=== PATIENT | female | born 1995 | race Caucasian/White ===

== ENCOUNTER 2018-01-21 09:28 | Inpatient (IN) | payer OTHER ==
[2018-01-21] VITALS (18 sets, daily range): BP systolic 105–134; BP diastolic 55–83; PULSE 78–106; TEMP 97.6–98.3
[~2018-01-21] VITALS: Ht 154.9 cm; Wt 75.0 kg
[2018-01-21] MEDS ORDERED: NATURAL IRON65 MG (09:56)
[2018-01-21] MEDS ORDERED: PRENATAL MVI (09:56)
[2018-01-21] MEDS ORDERED: FIBER GUMMIES2.5 GM PO (09:58)
[2018-01-21] MEDS ORDERED: ZANTAC 7575 MG PO (09:58)
[2018-01-21 12:22] LABS: BASO % 0.3 % (0.0-2.0); EOS # 0.2 (0.0-0.7); GRAN # 12.2 (1.4-6.5); GRAN % 78.1 % (42.2-75.2); HEMOGLOBIN 12.4 g/dl (12.5-16.0); LYMPH # 2.1 (1.2-3.4); LYMPH % 13.5 % (20.0-51.0); MEAN CELL VOLUME 92 fl (80.0-100.0); MEAN CORPUSCULAR HEMOGLOBIN 32 pg (27.0-31.0); MEAN CORPUSCULAR HGB CONC 35 g/dl (33.0-37.0); MEAN PLATELET VOLUME 11.3 fl (7.4-10.4); MONO % 6.6 % (1.7-9.3); PLATELET COUNT 217 K/mm3 (130-400); RED BLOOD COUNT 3.88 M/mm3 (4.10-5.30); REDCELL DISTRIBUTION WIDTH-CV 13.1 % (11.5-14.5)
[2018-01-21 12:32] LABS: HEMATOCRIT 35.7 % (37.0-47.0)
[2018-01-22 01:00] VITALS: BP 110/57; PULSE 81; TEMP 98.7
[2018-01-22 05:00] VITALS: BP 104/62; PULSE 81; TEMP 98.2
[2018-01-22 07:36] VITALS: BP 121/65; PULSE 82; TEMP 97.5
[2018-01-22] MEDS ORDERED: IBU800 M1 PO (11:02)
[2018-01-22] MEDS ORDERED: PERCOCET 325 MG1 TA2 PO (11:02)
[2018-01-22 12:00] VITALS: BP 113/72; PULSE 84; TEMP 98.3
[2018-01-22 16:00] VITALS: BP 114/69; PULSE 83; TEMP 98.4
[2018-01-22 20:30] VITALS: BP 112/66; PULSE 86; TEMP 98.3
[2018-01-23 08:43] VITALS: BP 112/73; PULSE 86; TEMP 98.2
== END 2018-01-23 11:05 | disposition home or self-care (01) | DRG 775 ==
LOC: LDRO 09:28 → LDR 11:40 → OB 11:40
PROVIDERS: Student in an Organized Health Care Education/Training Program
PROC: 10E0XZZ Delivery of Products of Conception, External Approach (ICD-10-PCS; principal; 2018-01-21)
PROC: 0KQM0ZZ Repair Perineum Muscle, Open Approach (ICD-10-PCS; 2018-01-21)
DX: O70.1 Second degree perineal laceration during delivery (principal); Z37.0 Single live birth; Z3A.38 38 weeks gestation of pregnancy; O99.02 Anemia complicating childbirth
CPT/HCPCS: J2590; J2795; J7120

== ENCOUNTER → 2018-07-27 | Outpatient (CLI) | payer OTHER ==
[~2018-07-27] MED LIST: FIBER GUMMIES2.5 GM PO; IBU800 M1 PO; NATURAL IRON65 MG; PERCOCET 325 MG1 TA2 PO; PRENATAL MVI; ZANTAC 7575 MG PO
--- NOTE | 2018-07-27 14:13 | NUR ---
Pt, Mackenzie Victor, presents for walk-in clinic with 6 month old baby boy, Jonatan Victor, for a evaluation because Jonatan has only gained a few ounces between his last 2 doctor appointments. Jonatan was seen yesterday by Dr. Liriano for his 6 month appointment and weighed 14# 5oz. Pt was advised to supplement and follow up with for information. Jonatan was born on [birth year] and weighed 6#8oz per pt report. Today he weighs 14# 7oz. He was supplemented in the last 24 hours with 6oz EBM and/or formula. He ate some avacado yesterday as well. Pt reports Jonatan nurses every 1-2 hours throughout the daytime and once over noc. She pumps 2-3 times daily and collects 3-4oz total for the day. Pt able to identify stress, and menstrual cycle returning at 5 weeks PP that are likely to be contributing to low milk supply. At this time Jonatan breastfeeds, gaining 40 gms on the right and 5 gms on the left per pre and post feed weights. Pt advised on increasing milk supply with power pumping, herbal supplements, and dietary supplements for her to increase protein intake. Handouts provided. Pt verbalizes understanding of suggestions. POC: Continue on demand, increase solid intake at usual meal times, first. For remaining breastfeedings, supplement 2-4oz with EBM and/or formula after BF. Implement suggestions to work on milk supply. Pt verbalizes understanding. Follow up: Pt anticipates returning to clinic next week. Questions invited and answered.
== END ==
LOC: OLC 11:15
DX: Z39.1 Encounter for care and examination of lactating mother (principal); Z71.89 Other specified counseling

== ENCOUNTER → 2018-08-03 | Outpatient (CLI) | payer OTHER ==
--- NOTE | 2018-08-03 14:18 | NUR ---
Pt, Mackenzie Victor, presents to walk-in clinic with 6 month old baby boy, Jonatan Victor, for a evaluation. They attended last week b/c of low milk supply and weight gain. Jonatan was born on [birth year] weighing 6# 8oz. He had a drop in percentile growth at his 6 month [address] Liriano and was referred for evaluation. Last week Jonatan weighed 14# 7oz. They have worked on milk supply by power pumping, improved dietary intake, and herbal supplements. Today Jonatan weighs 14# 15.2oz for a gain of 8.2oz in the last week. Pt reports pumping has increase to 12oz each day, using power pumping 3 times daily. Also reports that Jonatan is getting 12oz by bottle 3x/day, 50% BM, 50% formula. Additionally, his solids are increasing as well. Pt breastfeeds here, Jonatan has an intake of 2.4oz, last week was 1.6oz. POC: Pt indicates she will continue this feeding/pumping routine and Jonatan will next be seen by Dr. Liriano on 08/12/18. If there are concerns about feedings or weight she will follow up as needed. Questions invited and answered.
== END ==
LOC: LAC 11:19
DX: Z39.1 Encounter for care and examination of lactating mother (principal); Z71.89 Other specified counseling